=== PATIENT | female | born 1930 | race Caucasian/White ===

== ENCOUNTER 2016-10-23 16:24 | Inpatient (IN) ==
[2016-10-23] MEDS ORDERED: KETOROLAC 30 MG/ML INJECTION IVP ONE (16:57)
[2016-10-23] MEDS ORDERED: ONDANSETRON 4 MG/2 ML INJECTION IVP ONE (16:57)
--- NOTE | 2016-10-23 17:02 | Emergency Department Report ---
Abdominal Pain HPI - General Chief Complaint: Abdominal Pain <Sony Sierra 10/23/16 20:53> Stated Complaint: Abdominal pain <Sony Sierra 10/23/16 20:53> Time Seen by Provider: 10/23/16 16:52 <Sony Sierra 10/23/16 20:53> Source: patient, family <10/23/16 17:05> Mode of arrival: ambulatory <10/23/16 17:05> Limitations: no limitations <10/23/16 17:05> - History of Present Illness HPI narrative: 86yo woman presents to the ER for evaluation of abdominal pain. Pt has had abd pain, distension, and bloating for the last 4 days. Nothing helps her sx; movement, palpation, and food make it worse. Pt has not gotten any relief from maalox or tylenol. Has never had sx like this before. <10/23/16 17:05> MD complaint: abdominal pain <10/23/16 17:05> Onset (ago): day(s) (4) <10/23/16 17:05> Consistency: constant <10/23/16 17:05> Location: diffuse <10/23/16 17:05> Severity: severe <10/23/16 17:05> Severity scale (1-10): 8 <10/23/16 17:05> Quality: sharp <10/23/16 17:05> Radiation: none <10/23/16 17:05> Migration to: no migration <10/23/16 17:05> Relieving factors: nothing <10/23/16 17:05> Exacerbating factors: eating, movement <10/23/16 17:05> Associated symptoms: nausea <10/23/16 17:05> - Related Data Home Medications Medication Instructions Recorded Confirmed Simvastatin 10 mg PO HS #0 12/20/09 10/23/16 Nitroglycerin 0.4 mg SL Q5MIN3 PRN #0 12/30/09 10/23/16 Acetaminophen 650 mg PO DAILY PRN #0 02/26/15 10/23/16 Acetaminophen [Acetaminophen Extra 1,000 mg PO TID 10/23/16 10/23/16 Strength] Amlodipine Besylate [Norvasc] 5 mg PO DAILY 10/23/16 10/23/16 Carbidopa/Levodopa 25/100 mg 1 tab PO Q3H 10/23/16 10/23/16 [Sinemet] Cholecalciferol (Vitamin D3) 1,000 unit PO DAILY 10/23/16 10/23/16 [Vitamin D3] Cyanocobalamin (B-12) [Vit. B-12] 500 mcg PO DAILY 10/23/16 10/23/16 Folic Acid [Folate] 1 mg PO DAILY 10/23/16 10/23/16 Guaifenesin/Dm [Mucinex Dm] 1 tab PO Q12H PRN 10/23/16 10/23/16 Labetalol [Normodyne] 50 mg PO BID 10/23/16 10/23/16 Mag Hydrox/Aluminum Hyd/Simeth 30 ml PO DAILY PRN 10/23/16 10/23/16 [Alum-Mag Hydroxide-Simeth Liq] Magnesium Oxide [Magnesium] 400 mg PO DAILY 10/23/16 10/23/16 Potassium Chloride [Klor-Con M20] 20 meq PO DAILY 10/23/16 10/23/16 Sertraline [Zoloft] 100 mg PO DAILY 10/23/16 10/23/16 Trolamine Salicylate 10% Cream 1 applic TOP TID PRN 10/23/16 10/23/16 [Aspercreme] Previous Rx's Medication Instructions Recorded Ciprofloxacin HCl [Cipro] 500 mg PO BID #14 tab 10/23/16 <Sony Sierra 10/23/16 20:53> Allergies Allergy/AdvReac Type Severity Reaction Status Date / Time tramadol Allergy Unknown Verified 10/23/16 16:35 codeine AdvReac Unknown NAUSEA Verified 10/23/16 16:35 hydrocodone bit AdvReac Unknown NAUSEA Uncoded 10/23/16 16:35 <Sony Sierra - 10/23/16 20:53> Review of Systems All systems: reviewed and negative except as stated <10/23/16 17 :05> Gastrointestinal: Reports: as per HPI, abdominal pain, nausea <10/23/16 17:05> PFS Patient Stated Medical History Cataracts Yes Cardiac Arrhythmia Yes: afib Hypertension Yes Gastroesophageal Reflux Yes Disease Osteoarthritis Yes Post Menopausal Yes Clinic Medical History (Last Reviewed 10/19/16 @ 15:00 by ZACK Coello) Primary osteoarthritis of left knee (Chronic Medical) Atrial fibrillation (Acute Medical) CHF (congestive heart failure) (Acute Medical) Depression (Acute Medical) Dysuria (Acute Medical) HTN (hypertension) (Acute Medical) Hyperlipidemia (Acute Medical) Nausea & vomiting (Acute Medical) Osteoporosis (Acute Medical) Parkinsons (Acute Medical) Tremors of nervous system (Acute Medical) <Sony Sierra 10/23/16 20:53> Patient Stated Medical History Cataracts Yes Post Menopausal Yes Clinic Medical History (Last Reviewed 10/19/16 @ 15:00 by ZACK Coello) Primary osteoarthritis of left knee (Chronic Medical) Atrial fibrillation (Acute Medical) CHF (congestive heart failure) (Acute Medical) Depression (Acute Medical) Dysuria (Acute Medical) HTN (hypertension) (Acute Medical) Hyperlipidemia (Acute Medical) Nausea & vomiting (Acute Medical) Osteoporosis (Acute Medical) Parkinsons (Acute Medical) Tremors of nervous system (Acute Medical) <10/23/16 17:05> Surgical History: Cholecystectomy: 1981. CTS, bunion removal. Cataract removal : 2006. Rt TKA 2000. Right TKA. Back surgery 2012 <10/23/16 17:05> Family History: Family History (Last Reviewed 10/19/16 @ 15:00 by ZACK Coello) Mother Coronary artery disease Father Coronary artery disease <Sony Sierra 10/23/16 20:53> Family History (Last Reviewed 10/19/16 @ 15:00 by ZACK Coello) Mother Coronary artery disease Father Coronary artery disease <10/23/16 17:05> - Social History Smoking status: Never smoker <10/23/16 17:05> Physical Exam - Limitations Limitations: no limitations <10/23/16 17:05> - General General appearance: alert, in no apparent distress <10/23/16 17: 05> - Normal Exams: Head:: Normocephalic without trauma <10/23/16 17:05> Eyes:: Pupils are PERRLA w/ EOMI, No scleral icterus, irritation, or foreign bodies noted <10/23/16 17:05> ENMT:: No facial trauma, nasal exudates, pharyngeal erythema, or exudates are noted <10/23/16 17:05> Neck:: Full range of motion, without adenopathy <10/23/16 17:05> Chest/Respirations:: Clear all [place], with good airflow, and symmetry bilaterally <10/23/16 17:05> Cardiovascular:: Regular rate and rhythm, without murmur or gallop, Pulses 2+ all extremities, capillary refill, <2 seconds all extremities <10/23/16 17:05> Lymphatic:: No lymphadenopathy <10/23/16 17:05> Musculoskeletal:: No tenderness, or deformity noted <10/23/16 17 :05> Integumentary:: No rashes, hives, or bruising noted <10/23/16 17 :05> Neurological:: Patient is alert, and oriented <10/23/16 17:05> Psychiatric:: Patient exhibits, appropriate attention <10/23/16 17:05> - Abdominal Exam Abdominal exam: Present: soft, distention, tenderness, normal bowel sounds. Absent: guarding, rebound, rigidity, psoas sign, obturator sign, heel tap sign, Reed's sign, Rovsing's sign, tenderness at [place], hernia <June,10/23/16 17:05> Abdominal tenderness: Present: diffuse <10/23/16 17:05> Course Vital Signs Temperature 98.4 F 10/23/16 16:35 Pulse Rate 77 10/23/16 16:35 Respiratory Rate 22 10/23/16 16:35 Blood Pressure 136/88 10/23/16 16:35 Pulse Oximetry 97 10/23/16 16:35 Temperature 98.4 F 10/23/16 16:35 Pulse Rate 67 10/23/16 19:58 Respiratory Rate 19 10/23/16 19:58 Blood Pressure 172/81 H 10/23/16 19:58 Pulse Oximetry 97 10/23/16 19:58 <Sony Sierra - 10/23/16 20:53> Vital Signs Temperature 98.4 F 10/23/16 16:35 Pulse Rate 77 10/23/16 16:35 Respiratory Rate 22 10/23/16 16:35 Blood Pressure 136/88 10/23/16 16:35 Pulse Oximetry 97 10/23/16 16:35 Temperature 98.4 F 10/23/16 16:35 Pulse Rate 77 10/23/16 16:35 Respiratory Rate 22 10/23/16 16:35 Blood Pressure 136/88 10/23/16 16:35 Pulse Oximetry 97 10/23/16 16:35 <JuneGuzman 10/23/16 17:05> Abdominal Pain - MDM Narrative Medical decision making narrative: Labs/imaging reviewed in detail with the patient and family and the emergency department and questions are answered. Patient is given analgesic and antiemetic medications intravenously with improvement of symptoms in the emergency Department. Patient is found to have a microperforation associated with acute diverticulitis. General surgery is counseled on from the emergency department and comes to the emergency department and evaluates the patient in the form of Dr. Trevizo. Patient is discussed with Dr. Davidson and admitted to the service of Dr. Vazquez. Patient is given Invanz 1 g intravenously. She is a DO NOT RESUSCITATE. Patient and family are in agreement with the current plan of management. Patient is admitted to the hospital in improved condition. No further orders from accepting or consulting physicians were in agreement with the current plan of management. Patient is made nothing by mouth in the emergency department. <Sony Sierra 10/23/16 20:53> - Differential Diagnosis Differential diagnosis: Likely: abdominal pain, constipation, diverticulitis, gastroenteritis, pancreatitis, small bowel obstruction <June,Guzman 17:05> - Medical Records Attestation: I reviewed the patient's medical records. <JuneGuzman - 17:05> - Lab Data Attestation: I reviewed the patient's lab results. <JuneGuzman - 10/23/16 17: 05> Result diagrams: 10/23/16 04:07 10/23/16 04:07 <Sony Sierra C - 10/23/16 20:53> Lab Results 10/23/16 10/23/16 10/23/16 Range/Units 04:07 04:07 18:42 WBC 10.6 (4.5-11.0) T/MM3 RBC 3.79 L (4.00-5.20) M/MM3 Hgb 12.4 (12-16) GM/DL Hct 37.5 (36-46) % MCV 98.9 (80-100) UM3 MCH 32.7 (26-34) UUG MCHC 33.1 (31-37) GM/DL RDW Std Deviation 46.4 (36.9-50.2) FL Plt Count 166 (130-400) T/MM3 MPV 11.2 (9.4-12.4) UM3 Immature Gran % (Auto) Not performed Neut % (Auto) Not performed Lymph % (Auto) Not performed [place] % (Auto) Not performed Eos % (Auto) Not performed Baso % (Auto) Not performed Neut # Not performed Lymph # Not performed [place] # Not performed Eos # Not performed Baso # Not performed Abs Immat Gran (auto) Not performed Neutrophils % (Manual) 84.0 H (33-66) % Band Neutrophils % 1.0 (0-6) % Lymphocytes % (Manual) 11.0 L (23-45) % Monocytes % (Manual) 2.0 (0-9.0) % Metamyelocytes % 1.0 H (0-0) % Myelocytes % 1.0 H (0-0) % Neutrophils # (Manual) 8.9 H (1.8-7.7) T/MM3 Band Neutrophils # 0.1 T/MM3 Lymphocytes # (Manual) 1.2 (1-4.8) T/MM3 Monocytes # (Manual) 0.2 (0-0.8) T/MM3 Metamyelocytes # 0.1 T/MM3 Myelocytes # 0.1 T/MM3 RBC Morph Comment Normal Turbidity < 20 (0-20) Sodium 137 (134-144) MEQ/L Potassium 4.4 (3.6-5) MEQ/L Chloride 103 (98-107) MEQ/L Carbon Dioxide 25 (22-30) MEQ/L Anion Gap 9 (5-15) MEQ/L BUN 28.0 H (7-17) MG/DL Creatinine 0.7 (0.7-1.2) MG/DL GFR Calculation 79 BUN/Creatinine Ratio 40 H (6-26) RATIO Glucose 143 H (65-110) MG/DL Calculated Osmolality 272 (261-280) MOSM/KG Calcium 9.4 (8.4-10.2) MG/DL Total Bilirubin 1.00 (0.20-1.30) MG/DL Icterus Index < 2 (0-7) AST 16 (14-36) U/L ALT 19 (9-52) U/L Alkaline Phosphatase 76 (38-126) U/L Total Protein 6.9 (6.3-8.2) G/DL Albumin 3.9 (3.5-5.0) G/DL Globulin 3.0 (2.4-3.6) G/DL Albumin/Globulin Ratio 1.3 (1.1-2.2) RATIO Lipase 13 L (23-300) U/L Plasma Lactate 1.0 (0.6-2.2) MMOL/L Specimen Hemolysis < 15 (0-25) Ur Collection Type Urine, clean catch Urine Color Yellow (YELLOW) Urine Clarity Cloudy Urine pH 6.0 (5.0-8.0) Ur Specific [place] 1.020 (1.015-1.025) Urine Protein 2+ A (NEGATIVE) Urine Glucose (UA) Negative (NEGATIVE) Urine Ketones Trace A (NEGATIVE) Urine Occult Blood Negative (NEGATIVE) Urine Nitrate Positive A (NEGATIVE) Urine Bilirubin Negative (NEGATIVE) Urine Urobilinogen 0.2 (NORMAL) EU/DL Ur Leukocyte Esterase Trace A (NEGATIVE) Urine RBC 0-1 (0-3) /HPF Urine WBC 10-20 H (0-5) /HPF Urine Bacteria 3+ H (NEGATIVE) Ur Culture Indicated? Cult reflexed &setup <Sony Sierra - 10/23/16 20:36> - Radiology Data Attestation: I reviewed the patient's radiology results. <JuneGuzman M - 17:05> CT ABD/PELVIS: Acute diverticultitis with microperforation. Multiple air fluid levels without obstruction. Pancreatic tail hypoattenuating lesion. <Sony Sierra 10/23/16 20:36> Disposition Clinical Impression: Acute diverticulitis, Colon perforation <Sony Sierra 10/23/16 20:36> Disposition: 02 To [facility] Acute Care <Sony Sierra 10/23/16 20:36> Condition: Improved <Sony Sierra 10/23/16 20:53> Instructions: Kidney Infection (ED) <Sony Sierra 10/23/16 20:53> Prescriptions: New Ciprofloxacin HCl [Cipro] 500 mg PO BID #14 tab No Action Acetaminophen 650 mg PO DAILY PRN #0 PRN Reason: PAIN Acetaminophen [Acetaminophen Extra Strength] 1,000 mg PO TID Carbidopa/Levodopa 25/100 mg [Sinemet] 1 tab PO Q3H Guaifenesin/Dm [Mucinex Dm] 1 tab PO Q12H PRN PRN Reason: Nasal Congestion Magnesium Oxide [Magnesium] 400 mg PO DAILY Mag Hydrox/Aluminum Hyd/Simeth [Alum-Mag Hydroxide-Simeth Liq] 30 ml PO DAILY PRN PRN Reason: Reflux Labetalol [Normodyne] 50 mg PO BID Cyanocobalamin (B-12) [Vit. B-12] 500 mcg PO DAILY Amlodipine Besylate [Norvasc] 5 mg PO DAILY Trolamine Salicylate 10% Cream [Aspercreme] 1 applic TOP TID PRN PRN Reason: Pain Simvastatin 10 mg PO HS #0 Nitroglycerin 0.4 mg SL Q5MIN3 PRN #0 PRN Reason: chest pain Sertraline [Zoloft] 100 mg PO DAILY Cholecalciferol (Vitamin D3) [Vitamin D3] 1,000 unit PO DAILY Potassium Chloride [Klor-Con M20] 20 meq PO DAILY Folic Acid [Folate] 1 mg PO DAILY <Sony Sierra - 10/23/16 20:53> Referrals: Tila Bazzi DO [Family Provider] - <Sony Sierra 10/23/16 20:53> Time of Disposition: 20:00 (admit. Dr. Vazquez) <Sony Sierra - 10/23/16 20:36 > - Seen By: physician <Sony Sierra 10/23/16 20:36>
[2016-10-23] MEDS: SALINE FLUSH 10ml SYRINGE IVF PRN (17:07)
--- OUTSIDE RECORDS SUMMARY | 2016-10-23 17:15 | External Medical Summary | Referral Summary ---
:1930 Author Organization [facility] Address [address] [place] [address] Encounter VC Date(s): 03/06/15 - 03/13/15 [facility] [address] [place] [address] [phone] Discharge Diagnosis: Anemia, likely chronic Discharge Diagnosis: Accelerated hypertension Discharge Diagnosis: Elevated troponin level Discharge Diagnosis: Cervicalgia Discharge Diagnosis: Fall from standing Discharge Diagnosis: Parkinsons disease Discharge Diagnosis: Multiple recent falls Discharge Diagnosis: Hypokalemia Discharge Diagnosis: Traumatic ecchymosis of multiple sites Discharge Diagnosis: Type II NM Discharge Diagnosis: Hypomagnesemia Discharge Diagnosis: Diarrhea Discharge Diagnosis: Closed compression/endplate fractures of T7 vertebra Discharge Diagnosis: Dysphagia Discharge Diagnosis: Traumatic left subdural hematoma with loss of consciousness of unknown duration Discharge Disposition: -Group Home Facility Attending Physician: Dave Reed MD Admitting Physician: Dave Reed MD Vital Signs Most recent to oldest [Reference Range]: 1 Temperature Axillary [35.2-36.7 degC] 36.7 degC (03/11/15 8:40 PM) Temperature Oral [35.8-37.3 degC] 36.4 degC (03/13/15 9:29 AM) Temperature Temporal Artery [36.3-37.8 degC] 36.6 degC (03/08/15 9:00 AM) Peripheral Pulse Rate [60-100 bpm] 79 bpm (03/13/15 9:29 AM) Heart Rate Monitored [60-100 bpm] 83 bpm (03/11/15 3:30 PM) Respiratory Rate [14-20 br/min] 16 br/min (03/13/15 9:29 AM) Blood Pressure [90-140/60-90 mmHg] 195/100 mmHg *HI* (03/13/15 9:29 AM) Mean Arterial Pressure, Cuff 109 mmHg (03/09/15 2:20 AM) SpO2 96 % (03/13/15 9:29 AM) Problem List Condition Effective Dates Status Health Status Informant Acute pain(Confirmed) Active At risk for injury(Confirmed)1 Active At risk of pressure sore(Confirmed) Active Knowledge deficit(Confirmed)2 Active Urinary incontinence(Confirmed)3 Active 1Problem added automatically by system based on initiation of Risk for Injury Plan of [id number] added automatically by system based on initiation of Knowledge Deficit Plan of [id number] added automatically by system based on initiation of Urinary Incontinence Plan of Care Allergies, Adverse Reactions, Alerts Substance Reaction Severity Status codeine Nausea Active Lortab Nausea Active traMADol Nausea Active Medications acetaminophen 650 mg, Oral, q4hr, as needed for pain, 1-2 tabs, 0 Refill(s) Start Date: 03/06/15 Status: Orderedcarbidopa-levodopa 25 mg-100 mg oral tablet 1 tabs, Oral, 5x/Day, 0 Refill(s) Start Date: 03/06/15 Status: OrderedColace 100 mg oral capsule 100 mg 1 caps, Oral, BID, 0 Refill(s) Start Date: 03/13/15 Status: OrderedDulcolax Laxative 10 mg, Oral, Daily, as needed for constipation, 0 Refill(s) Start Date: 03/06/15 Status: Orderedfolic acid 1 mg oral tablet 1 mg 1 tabs, Oral, Daily, 0 Refill(s) Start Date: 03/06/15 Status: Orderedlabetalol 100 mg oral tablet 100 mg 1 tabs, Oral, BID, 0 Refill(s) Start Date: 03/12/15 Status: Orderedmagnesium oxide 400 mg (241.3 mg elemental magnesium) oral tablet 400 mg 1 tabs, Oral, BID, 0 Refill(s) Start Date: 03/13/15 Status: OrderedMilk of Magnesia 2,400 mg 30 mL, Oral, Daily, 0 Refill(s) Start Date: 03/13/15 Status: OrderedMiraLax 17 g 1 packets, Oral, Daily, 0 Refill(s) Start Date: 03/13/15 Status: OrderedNitrostat 0.4 mg sublingual tablet 0.4 mg 1 tabs, SubLingual, q5min, as needed for chest pain, # 100 tabs, 0 Refill (s) Start Date: 03/06/15 Status: Orderedomeprazole 20 mg, Oral, Daily, 0 Refill(s) Start Date: 03/06/15 Status: Orderedoxybutynin 5 mg oral tablet 5 mg 1 tabs, Oral, QID, 0 Refill(s) Start Date: 03/06/15 Status: Orderedpotassium chloride 20 mEq oral tablet, extended release 40 mEq 2 tabs, Oral, TID, 0 Refill(s) Start Date: 03/13/15 Status: Orderedsertraline 100 mg oral tablet 150 mg 1.5 tabs, Oral, Daily, 0 Refill(s) Start Date: 03/06/15 Status: Orderedsimvastatin 10 mg oral tablet 10 mg 1 tabs, Oral, Bedtime (once a day), 0 Refill(s) Start Date: 03/06/15 Status: OrderedVitamin B12 500 mcg, Oral, Daily, 0 Refill(s) Start Date: 03/06/15 Status: OrderedZofran 4 mg oral tablet 8 mg 2 tabs, Oral, q8hr, as needed for nausea/vomiting, 0 Refill(s) Start Date: 03/06/15 Status: Ordered Results Hematology Most recent to oldest [Reference Range]: 1 WBC [4.8-10.8 10*3/uL] 5.2 10*3/uL (03/13/15 5:14 AM) RBC [4.00-5.20] 3.30 *LOW* (03/13/15 5:14 AM) Hgb [12.0-16.0 gm/dL] 10.4 gm/dL *LOW* (03/13/15 5:14 AM) Hct [37.0-47.0 %] 31.2 % *LOW* (03/13/15 5:14 AM) MCV [82.0-99.0 fL] 94.5 fL (03/13/15 5:14 AM) MCH [27.0-32.0 pg] 31.5 pg (03/13/15 5:14 AM) MCHC [32.0-36.0 gm/dL] 33.3 gm/dL (03/13/15 5:14 AM) RDW [11.5-14.5 %] 12.6 % (03/13/15 5:14 AM) Platelet [150-400 10*3/uL] 194 10*3/uL (03/13/15 5:14 AM) MPV [9.4-12.4 fL] 11.3 fL (03/13/15 5:14 AM) Coagulation Most recent to oldest [Reference Range]: 1 INR [0.9-1.2] 1.0 (03/06/15 8:53 AM) Chemistry Most recent to oldest [Reference Range]: 1 Sodium Lvl [136-144 mEq/L] 136 mEq/L (03/13/15 5:14 AM) Potassium Lvl [3.6-5.1 mEq/L] 2.6 mEq/L *LOW* (03/13/15 5:14 AM) Chloride [99-109 mEq/L] 99 mEq/L (03/13/15 5:14 AM) CO2 [22-32 mEq/L] 29 mEq/L (03/13/15 5:14 AM) AGAP [3-20] 8 (03/13/15 5:14 AM) BUN [4-20 mg/dL] 9 mg/dL (03/13/15 5:14 AM) Glucose Lvl [70-100 mg/dL] 113 mg/dL *HI* (03/13/15 5:14 AM) Creatinine Lvl [0.44-1.03 mg/dL] 0.50 mg/dL (03/13/15 5:14 AM) eGFR [>60] >60 1 (03/13/15 5:14 AM) Calcium Lvl [8.6-10.0 mg/dL] 8.2 mg/dL *LOW* (03/13/15 5:14 AM) Albumin Lvl [3.5-4.8 gm/dL] 2.2 gm/dL *LOW* (03/13/15 5:14 AM) Magnesium Lvl [1.8-2.5 mg/dL] 1.3 mg/dL *LOW* (03/13/15 5:14 AM) Phosphorus [2.4-4.7 mg/dL] 2.8 mg/dL 2 (03/13/15 5:14 AM) Troponin [<0.06 ng/mL] 0.76 ng/mL 3 *HHI* (03/07/15 12:41 AM) Lactic Acid Lvl [0.5-2.2 mEq/L] 1.5 mEq/L (03/06/15 9:00 AM) Blood Glucose, Capillary [74-106 mg/dL] 91 mg/dL (03/06/15 9:35 AM) Blood Glucose, Capillary [70-100 mg/dL] 91 mg/dL (03/06/15 9:35 AM) Chol [0-200 mg/dL] 133 mg/dL (03/06/15 9:00 AM) Trig [0-150 mg/dL] 75 mg/dL (03/06/15 9:00 AM) HDL [>40 mg/dL] 71 mg/dL (03/06/15 9:00 AM) LDL [0-100 mg/dL] 47 mg/dL (03/06/15 9:00 AM) VLDL Cholesterol [0-30 mg/dL] 15 mg/dL (03/06/15 9:00 AM) Cardiac Risk [0.0-5.0] 1.9 (03/06/15 9:00 AM) 1Result Comment: Multiply eGFR results by 1.21 for race.2Result Comment: High dosages of liposomal Amphotericin B (AmBisome) therapy or other drug preparations that use a liposomal envelope to facilitate drug delivery may cause falsely elevated results for phosphorus.3Result Comment: Critical value called, and read-back verified. Called to Jessika Austin RN @ 03/07/2015 01:29 Immunizations No data available for this section Procedures No data available for this section Social History No data available for this section Assessment and Plan No data available for this section
--- OUTSIDE RECORDS SUMMARY | 2016-10-23 17:15 | External Medical Summary | Continuity of Care Document ---
:1930 Author Organization [facility] Support Name Relationship Address Phone MED CONTEH DO Unavailable [address] [place] [address] JENARO PRECIADO MD Unavailable [address] [address] TARIQ MARTÍNEZ Unavailable [address] [place] [address] Insurance Providers Payer Name Policy Number Subscriber Name Relationship Medicareadvantra Ppo [id number] Chon Nayak 18 Self Advance Directives Directive Response Recorded Date/Time Advanced Directives Type None 05/28/14 6:17pm Ordered Resuscitation Status Full Code, unverified 05/28/14 6:09pm Resuscitation Documents on File No 05/28/14 6:37pm Chief Complaint and Reason for Visit Chief Complaint RT UPPER EXTREMITY/LOWEREXTREMITY WEAKNESS Reason for Visit Weakness of right upper extremity CVA (cerebrovascular accident) Problems Medical Problems Problem Onset Date Status Fall Unknown Active Minor Head Injury Unknown Active Scalp laceration Unknown Active Back injury Unknown Active Laceration of back Unknown Active Fall Unknown Active Weakness of right upper extremity Unknown Active CVA (cerebrovascular accident) 05/31/2014 Active Medications Medication Dose Route Sig Days/Qty Instructions Order Discontinued Status Date Date Hydrochlorothia 1 Tab PO DAILY 12/20/09 Discontinu zide ed Amlodipine 1 Tab PO DAILY 07/17/ 02/09/09 Discontinu Bes/Olmesartan 09 ed Med Carbidopa/Levod 1 Tab PO THREE 07/05/ 12/20/09 Discontinu opa TIMES A 10 ed DAY [Vitamin B 12] 1 Tab PO DAILY 07/05/ 12/20/09 Discontinu 10 ed Aspirin 81 Mg PO DAILY 07/04/09 Discontinu 09 ed Metoprolol 50 Mg PO DAILY 12/20/ 12/30/09 Discontinu Succinate ed Clopidogrel 75 Mg PO DAILY 07/04/09 Discontinu Bisulfate 09 ed Simvastatin 1 Tab PO DAILY 12/20/ 10 Asa/Calcium 500 Mg PO DAILY 07/05/ 12/20/09 Discontinu Carb/Mag/Al 10 ed Hydrox Carbidopa/Levod 1 PO 04/28/12 Discontinu opa Udtab 10 ed Propoxyphene 65 Mg PO 04/28/12 Discontinu Hcl NEEDED 10 ed Ferrous Sulfate 1 Tab PO DAILY 12/20/ 12/30/09 Discontinu 10 ed Acetaminophen 500 Mg PO 12/30/ Active NEEDED 10 Aspirin 81 Mg PO DAILY 04/28/12 Discontinu 10 ed Famotidine 20 Mg PO 03/21/13 Discontinu NEEDED 10 ed Iron 150 Mg PO DAILY 03/21/13 Discontinu Polysaccharides 10 ed Complex Nitroglycerin 0.4 Mg SL NEEDED 10 Docusate Sodium 100 Mg PO DAILY 04/28/12 Discontinu 13 ed Polyethylene 17 Gm PO DAILY 04/28/12 Discontinu Glycol 3350 13 ed Isosorbide 30 Mg PO DAILY 04/28/12 Discontinu Mononitrate 13 ed Simvastatin 10 Mg PO BEDTIME 04/28/12 Discontinu 13 ed Metoprolol 25 Mg PO DAILY 04/28/12 Discontinu Succinate 13 ed Gabapentin 1 Tab PO THREE 02/25/ TIMES A 13 DAY Oxycodone 1 Tab PO Q4H PRN 03/21/13 Discontinu Hcl/Acetaminoph 13 ed en Bisacodyl 10 Mg PO 03/21/13 Discontinu NEEDED 13 ed Acetaminophen 650 Mg PO 04/28/12 Discontinu 13 ed Magnesium Oxide 400 Mg PO TWICE A 04/28/12 Discontinu DAY 13 ed Nitroglycerin 0.4 Mg SL 04/28/12 Discontinu NEEDED 13 ed Aspirin 81 Mg PO DAILY 05/31/14 Discontinu 14 ed Metoprolol 1 Tab PO DAILY 05/31/14 Discontinu Succinate 15 ed Sertraline HCl 1.5 PO DAILY 05/28/ Tab 15 Midodrine HCl 1 Tab PO TWICE A 05/28/ 05/31/14 Discontinu DAY 15 ed Ibuprofen 2 Tab PO Q4H PRN 05/28/ 05/31/14 Discontinu PAIN 15 ed Cyanocobalamin 1 Tab PO DAILY (Vitamin B-12) 15 Folic Acid 1 Tab PO DAILY 800 mcg 15 Multivitamin 1 Tab PO DAILY Active 15 Carbidopa/Levod 1 Tab PO 5 TIMES 05/28/ Active opa DAILY 15 Oxybutynin 5 Mg PO TWICE A 05/28/ Active Chloride DAY 15 Metoprolol 50 Mg PO ONE TO 60 Qty 05/31/ Active Succinate TWO 15 TIMES A DAY Social History Social History Problem Response Recorded Date/Time Hx Substance Use No 05/28/2014 5:15pm Hx Alcohol Use No 05/28/2014 5:15pm Has the pt used tobacco in the last 12 months No 05/28/2014 6:37pm Tobacco Usage none 05/28/2014 5:23pm Query Response Start Date Stop Date Smoking Status Never smoker Hospital Discharge Instructions Instructions: Care Instructions: Reason for Hospitalization: RIGHT UPPER AND LOWER EXTREMITY WEAKNESS I was in the hospital because (patient own words): States,"I thought I was having a stroke." Follow Up Appointments: Appt with Dr. Conteh in [address] CONTEH ON 06/06/2014 AT 11:00 AM FOR FOLLOW UP VISIT. [phone], CLINIC NUMBER. Patient Instructions: Take BPs 2 x a day and bring into appt. Condition at time of discharge: Good Patient Instructions: OUTPATIENT INFUSION FOR WOUND PACKING 05/13/14 RETURN TO CARE IMMEDIATELY IF GROIN PAIN WORSENS AND/OR IF FEVER, CHILLS OCCUR. CONTINUE CURRENT DOSE AND SCHEDULE OF INSULIN PUMP CHECK BLOOD SUGARS BEFORE MEALS AND AT BEDTIME. CALL DR. BRAVO FOR SUGARS GREATER THAN 300. Condition at time of discharge: Good Condition at time of discharge: Good Plan of Care Discharge Date 05/31/14 1:10pm Disposition 01 DISCHARGED HOME, SELF-CARE Instructions/Education Provided DI for Stroke-Ischemic Prescriptions See Medications Section Functional Status Query Response Date Recorded Physical Hygiene Self May 31, 2014 9:57am Disabilities Visual May 31, 2014 9:57am None Devices Used Glasses May 31, 2014 9:57am Walker Dressing Self May 31, 2014 9:57am Ambulation Self May 31, 2014 9:57am Diet Self May 31, 2014 9:57am Mental Status Alert May 31, 2014 9:57am Oriented Disabilities Visual May 31, 2014 9:57am None Devices Used Glasses May 31, 2014 9:57am Walker Physical Hygiene Self May 31, 2014 9:57am Dressing Self May 31, 2014 9:57am Ambulation Self May 31, 2014 9:57am Diet Self May 31, 2014 9:57am Allergies, Adverse Reactions, Alerts Allergen Type Severity Reaction Status Last Updated hydrocodone bit Adverse Reaction Unknown NAUSEA Active 05/28/14 Codeine Adverse Reaction Unknown NAUSEA Active 05/28/14 Tramadol Allergy Unknown Active 05/28/14 Immunizations Name Given Type Hx Influenza Vaccination Y nov 2013 Historical Hx Pneumococcal Vaccination Y fall 2010 Historical Hx Tetanus, Diptheria, Pertussis Y 04/05/14 Historical Hx Influenza Vaccination Y nov 2013 Historical Hx Tetanus, Diptheria, Pertussis Y 04/05/14 Historical Vital Signs Acute Vital Signs Vital Response Date/Time Temperature (Fahrenheit) 97.4 deg F (96.8 - 99.1) Temperature (Calculated Celsius) 36.76177 degrees C (36.0 - 37.3) Pulse Rate (adult) 58 bpm (60 - 100) Respiratory Rate 18 breaths/min (10 - 20) O2 Sat by Pulse Oximetry 96 % (90 - 100) Oxygen Delivery Method Room Air Blood Pressure 202/106 mm Hg Blood Pressure Source Automatic Cuff Blood Pressure 206/99 mm Hg Blood Pressure 172/77 mm Hg Blood Pressure 172/77 mm Hg Height 5 ft 5 in Weight 150 lb Body Mass Index 25.0 kg/m^2 Results Test Source Date Result Interp. Ref. Comments Range Absolute February 28, 0.0742 T/MM3 N 0.0300-0 Reticulocyte Count 2012 4:38am .0900 Activated Partial May 28, 28.3 SEC N 24-36 Thromboplast Time 2014 5:15pm Alanine May 29, 19 U/L N 9-52 Aminotransferase 2014 4:43am (ALT/SGPT) Albumin May 29, 3.4 G/DL L 3.5-5.0 2014 4:43am Albumin/Globulin May 29, 1.3 RATIO N 1.1-2.2 Ratio 2014 4:43am Alkaline Phosphatase May 29, 79 U/L N 38-126 2014 4:43am Anion Gap May 31, 9 MEQ/L N 5-15 2014 4:41am Aspartate Amino May 29, 14 U/L N 14-36 Transf (AST/SGOT) 2014 4:43am B-Type Natriuretic July 17, 2008 48 PG/ML N 15-100 Peptide 6:40pm BUN/Creatinine Ratio May 31, 32 RATIO H 6-2014 4:41am Band Neutrophils # May 29, 0.2 T/MM3 - 2014 4:43am Band Neutrophils % May 29, 4.0 % N 0-6 2014 4:43am Basophils # (Auto) May 31, 0.0 T/MM3 N 0-0.2 2014 4:41am Basophils # (Manual) January 09, 0.0 T/MM3 N 0-0.2 2009 6:05am Basophils % (Manual) January 09, 0.0 % N 0-2 2009 6:05am Basophils (%) (Auto) May 31, 0.8 % N 0-2 2014 4:41am Blood Smear February 28, Sent for - SPECIMEN NOT Pathologist Review 2012 10:00am review RESULTED FROM DAY BEFORE, CHECKED WITH THERESA ANDKVNGIMEN WAS SENT OUT ON 02-29-12. CAU Blood Urea Nitrogen May 31, 32.0 MG/DL H 7-2014 4:41am Calcium Level May 31, 8.9 MG/DL N 8.4-10.2 2014 4:41am Calculated May 31, 282 MOSM/KG H 261-280 Osmolality 2014 4:41am Carbon Dioxide Level May 31, 30 MEQ/L N 22-30 2014 4:41am Chemistry Specimen May 31, < 15 0-25 0-25: No Hemolysis.26-70: Slight Hemolysis - can falsely elevate K and Urine Hemolysis 2015 4:41am Protein. 71-285: Moderate Hemolysis - can falsely elevate K, Troponin I, CA 19-9, PTH, CSF GLucose, and Urine Protein, and can falsely decrease Phenytoin. 286-999: Gross Hemolysis - can falsely elevate K, Troponin I, CA 19-9, PTH, CSF Glucose, and Urine Protine, and can falsely decrease Phenytoin. Recommend specimen recollection. Chloride Level May 31, 104 MEQ/L N 98-107 2014 4:41am Cholesterol Level July 18, 2008 213 MG/DL H 132-199 6:10am Cholesterol/HDL July 18, 2008 3.0 RATIO N 0-4.0 Ratio 6:10am Creatinine May 31, 1.0 MG/DL N 0.7-1.2 2014 4:41am Differential Total January 14, 100 % - Cells Counted 2009 5:40am EKG July 18, 2008 Complete - COMMENT THIS 10:20am AM Eosinophils # (Auto) May 31, 0.2 T/MM3 N 0-0.5 2014 4:41am Eosinophils # May 29, 0.1 T/MM3 N 0-0.5 (Manual) 2014 4:43am Eosinophils % May 29, 2.0 % N 0-4 (Manual) 2014 4:43am Eosinophils (%) May 31, 2.9 % N 0-4 (Auto) 2014 4:41am Ferritin February 28, 131 NG/ML N 11-264 2012 5:05am Folate February 28, 18.9 NG/ML N 2.76-20 NORMAL ADULT 2012 5:05am RANGE: 2.76->20 ng/mL Free Thyroxine May 29, 1.05 NG/DL N 0.78-2.1 2014 4:43am 9 Globulin May 29, 2.7 G/DL N 2.4-3.6 2014 4:43am Glomerular May 31, 53 - Filtration Rate Calc 2014 4:41am Glucometer May 31, 209 mg/dL H 65-110 2014 8:50am Glucose Level May 31, 105 MG/DL N 65-110 2014 4:41am HDL Cholesterol July 18, 2008 71 MG/DL H 40-60 Direct 6:10am Hematocrit May 31, 33.5 % L 36-46 2014 4:41am Hemoglobin May 31, 10.7 GM/DL L 12-16 2014 4:41am Icterus Index May 31, < 2 0-7 2014 4:41am Immature Granulocyte May 31, 0.01 T/MM3 N 0.00-0.0 # (Auto) 2014 4:41am 3 Immature Granulocyte May 31, 0.2 % N 0.0-0.5 % (Auto) 2014 4:41am Immature February 28, 11.2 % N 3.3-14.5 Reticulocyte 2012 4:38am Fraction Ionized Calcium January 14, 1.18 MMOL/L N 1.12-1.3 (Measured) 2009 5:40am 2 Iron Level February 28, 42 UG/DL N 37-170 2012 5:05am LDL Cholesterol, July 18, 2008 108.4 N 66-159 Calculated 6:10am Lab Scanned Report March 27, LAB TEST - 2014 7:46am FORM REQUEST Lymphocytes # (Auto) May 31, 1.3 T/MM3 N 1-4.8 2014 4:41am Lymphocytes # May 29, 1.1 T/MM3 N 1-4.8 (Manual) 2014 4:43am Lymphocytes % May 29, 20.0 % L 23-45 (Manual) 2014 4:43am Lymphocytes (%) May 31, 25.9 % N 23-45 (Auto) 2014 4:41am MRSA Specimen Source December 02, Nasal - 2009 9:20am Magnesium Level May 31, 1.9 MG/DL DN 1.6-2.3 2014 4:41am Mean Corpuscular May 31, 31.1 UUG N 26-34 Hemoglobin 2014 4:41am Mean Corpuscular May 31, 31.9 GM/DL N 31-37 Hemoglobin Concent 2014 4:41am Mean Corpuscular May 31, 97.4 UM3 N 80-100 Volume 2014 4:41am Mean Platelet Volume May 31, 12.3 UM3 N 9.4-12.4 2014 4:41am Methicillin-Resist December 02, Negative - S.aureus DNA PCR 2009 9:20am Monocytes # (Auto) May 31, 0.4 T/MM3 N 0-0.8 2014 4:41am Monocytes # (Manual) May 29, 0.1 T/MM3 N 0-0.8 2014 4:43am Monocytes % (Manual) May 29, 1.0 % N 0-9.0 2014 4:43am Monocytes (%) (Auto) May 31, 8.3 % N 0-9.0 2014 4:41am Neutrophils # (Auto) May 31, 3.2 T/MM3 N 1.8-7.7 2014 4:41am Neutrophils # May 29, 4.1 T/MM3 N 1.8-7.7 (Manual) 2014 4:43am Neutrophils % May 29, 73.0 % H 33-66 (Manual) 2014 4:43am Neutrophils (%) May 31, 61.9 % N 33-66 (Auto) 2014 4:41am Percent Reticulocyte February 28, 2.8 % H 0.6-1.7 Count 2012 4:38am Platelet Count May 31, 152 T/MM3 N 974-006 5363 4:41am Potassium Level May 31, 4.2 MEQ/L N 3.6-5 2014 4:41am Prothromb Time May 28, 0.98 N 0.81-1.0 THERAPUTIC International Ratio 2014 5:15pm 9 RANGE=2.00-3.0 0 FOR ANTI-THROMBOSI S THERAPUTIC RANGE=2.50-3.5 0 FOR IMPLANTED VALVE RDW Standard May 31, 42.4 FL N 36.9-50. Deviation 2014 4:41am 2 Reactive Lymphocytes January 14, 0.1 T/MM3 H 0-0 # 2009 5:40am Reactive Lymphocytes January 14, 2.0 % H 0-0 % 2009 5:40am Red Blood Count May 31, 3.44 M/MM3 L 4.00-5.2 2014 4:41am 0 Red Cell Morphology May 29, Normal - Comment 2014 4:43am Reticulocyte Hgb February 28, 30.9 PG N 30.8-36. Content (CHr) 2012 4:38am 6 Sodium Level May 31, 143 MEQ/L N 586-540 8364 4:41am Thyroid Stimulating May 29, 1.09 MIU/L DN 0.47-4.6 Hormone (TSH) 2014 4:43am 8 Total Bilirubin May 29, 0.50 MG/DL N 0.20-1.3 2014 4:43am 0 Total Iron Binding February 28, 210 UG/DL L 261-497 Capacity 2012 5:05am Total Protein May 29, 6.1 G/DL L 6.3-8.2 2014 4:43am Transferrin February 28, 146.73 MG/DL L 018-163 1747 5:05am Triglycerides Level July 18, 2008 168 MG/DL H 35-135 6:10am Troponin I May 28, 0.027 ng/ml N 0-0.12 2014 5:15pm Turbidity May 31, < 20 0-20 2014 4:41am Urine Bacteria December 31, Trace H - Has specimen 2009 10:25am been collected/obta ined? Y Urine Bilirubin December 31, Negative - Has specimen 2009 10:25am been collected/obta ined? Y Urine Blood December 31, Negative - Has specimen 2009 10:25am been collected/obta ined? Y Urine Collection December 31, Voided - Has specimen Type 2009 10:25am been collected/obta ined? Y Urine Color December 31, Yellow - Has specimen 2010 10:25am been collected/obta ined? Y Urine Culture December 31, Cult not set - Has specimen Indicated 2009 10:25am up been collected/obta ined? Y Urine Glucose (UA) December 31, Negative - Has specimen 2009 10:25am been collected/obta ined? Y Urine Hyaline Casts December 31, 1-3 /LPF - Has specimen 2009 10:25am been collected/obta ined? Y Urine Ketones December 31, Negative - Has specimen 2009 10:25am been collected/obta ined? Y Urine Leukocyte December 31, 1+ H - Has specimen Esterase 2009 10:25am been collected/obta ined? Y Urine Mucus December 31, Present - Has specimen 2009 10:25am been collected/obta ined? Y Urine Nitrite December 31, Negative - Has specimen 2009 10:25am been collected/obta ined? Y Urine Protein December 31, Negative - Has specimen 2010 10:25am been collected/obta ined? Y Urine RBC December 31, 0-1 /HPF - Has specimen 2010 10:25am been collected/obta ined? Y Urine Specific December 31, 1.005 L - Has specimen [place] 2009 10:25am been collected/obta ined? Y Urine Squamous December 31, Few - Has specimen Epithelial Cells 2009 10:25am been collected/obta ined? Y Urine Turbidity December 31, Clear - Has specimen 2010 10:25am been collected/obta ined? Y Urine Urobilinogen December 31, Normal EU/DL - Has specimen 2009 10:25am been collected/obta ined? Y Urine WBC December 31, 3-5 /HPF - Has specimen 2010 10:25am been collected/obta ined? Y Urine pH December 31, 8.0 - Has specimen 2009 10:25am been collected/obta ined? Y VLDL Cholesterol July 18, 2008 33.6 MG/DL H 0-28 6:10am Vitamin B12 Level February 28, 299 PG/ML N 335-247 1777 5:05am White Blood Count May 31, 5.2 T/MM3 N 4.5-11.0 2014 4:41am Helicobacter pylori Gastric November 19, Rapid Urease Biopsy 2009 11:48am Name: CHON NAYAK Unit #: [id number] : [id number] Sex: F Loc / Svc: SRG DOS: 05/28/14 Signed Report #: [id number] DIAGNOSTIC IMAGING REPORT TYPE OF EXAM: US CAROTID DOPP COMPLETE Dictated By: SEBASTIÁN DUNHAM MD Indication: ITS.REASON: probable right-sided CVA TECHNIQUE: Grayscale, color and duplex Doppler imaging was performed of the carotid systems bilaterally. Velocities in cm/sec RIGHT: PSV ICA 103 PDV ICA 25 PSV CCA 123 PDV CCA 23.2 SVR 0.8 PSV ECA 137 ICA Diameter reduction <20% (0.8-1.0)% LEFT: PSV ICA 101 PDV ICA 18.9 PSV CCA 121 PDV CCA 26.6 SVR 0.8 PSV ECA 135 ICA Diameter reduction <20% (0.8-1.0)% The right vertebral artery is patent with cephalic flow. The left vertebral artery is patent with cephalic flow. Minimal plaque seen at the carotid bulbs. IMPRESSION: No hemodynamically significant carotid stenosis. . Procedures Procedure Status Date Provider(s) ROUTINE VENIPUNCTURE completed 03/26/14 ASSAY OF TROPONIN QUANT completed 03/26/14 RPR S/N/AX/GEN/TRNK 2.5CM/< completed 04/05/14 NGOZI LO MD X-RAY EXAM L-S SPINE 2/3 VWS completed 04/05/14 IMMUNIZATION ADMIN completed 04/05/14 TDAP VACCINE 7 YRS/> IM completed 04/05/14 EMERGENCY DEPT VISIT completed 04/05/14 [id number] ITEM OR SERVICE completed 04/05/14 [id number] ITEM OR SERVICE completed 04/05/14 Encounters Encounter Location Date/Time Discharged Inpatient 05/30/14 9:18am Departed Emergency Room 04/05/14 8:42pm Registered Clinic 03/26/14 4:30pm Recent Diagnosis Weakness of right upper extremity CVA (cerebrovascular accident)
[2016-10-23] MEDS ORDERED: IOHEXOL 300mg/ml 100ml INJECTION ONE (18:40)
[2016-10-23] MEDS ORDERED: NS 100 ML ONE (18:40)
[2016-10-23] MEDS ORDERED: SALINE FLUSH 10ml SYRINGE ONE (18:40)
[2016-10-23] MEDS ORDERED: CIPROFLOXACIN 250 MG TABLET PO ONE (19:07)
[2016-10-23] MEDS ORDERED: ERTAPENEM 1 G in NS 100 ML IV ONE (20:11)
[2016-10-23] MEDS ORDERED: MORPHINE SULFATE 2 MG SYRINGE IVP PRN (21:09)
[2016-10-23] MEDS ORDERED: NITROGLYCERIN 0.4 MG SUBLINGUAL TABLET SL PRN (21:09)
[2016-10-23] MEDS ORDERED: ONDANSETRON 4 MG/2 ML INJECTION IVP PRN (21:09)
--- NOTE | 2016-10-23 21:13 | History & Physical Report ---
<Magan Davidson - Last Filed: 10/23/16 21:48> History of Present Illness Date: 10/23/16 Chief complaint: Abdominal pain HPI: Rosalind is an 86 y/o w/ h/o HTN, HLD, Parkinson's and other medical issues who presents to ED at [facility] with c/o abdominal pain. Patient states she has had abdominal pain since Wednesday, some intermittent nausea, and today noted increasing pain, nausea, and decreased appetite along w/ some mild abdominal distention. Patient states she did have a BM this AM and did have breakfast, however since breakfast states she has not felt well and has had a generally poor appetite and intake. Patient denies f/c/s; denies emesis, diarrhea and denies change in bladder function. Denies SYKES, chest pain, SOA and dyspnea. In ED patient had a CT abdomen which showed diverticulitis in the sigmoid colon w/ a microperforation along w/ a lesion in the tail of the pancreas. Also showed some pancreatic and biliary ductal dilatation and prior evidence of cholecystectomy. Patient's UA c/s possible UTI. Dr. Trevizo saw the patient in the ER and requested that the Hospitalist service admit the patient and he will consult. Patient started on Invanz with 1 gram IV in the ER. Patient received Toradol x one in ED and Zofran and is feeling better at the time I visited w/ her. Patient to be admitted to the Hospitalist service for further evaluation and management. Review of Systems Review of systems: As noted in the HPI, otherwise a 10 point ROS otherwise negative PFS Patient Stated Medical History Cataracts Yes Cardiac Arrhythmia Yes: afib Hypertension Yes Gastroesophageal Reflux Yes Disease Osteoarthritis Yes Post Menopausal Yes Clinic Medical History (Last Reviewed 10/19/16 @ 15:00 by ZACK Coello) Primary osteoarthritis of left knee (Chronic Medical) Atrial fibrillation (Acute Medical) CHF (congestive heart failure) (Acute Medical) Depression (Acute Medical) Dysuria (Acute Medical) HTN (hypertension) (Acute Medical) Hyperlipidemia (Acute Medical) Nausea & vomiting (Acute Medical) Osteoporosis (Acute Medical) Parkinsons (Acute Medical) Tremors of nervous system (Acute Medical) Medical History Updates: Patient and patient's familiy report that episode of AFib was "many" years ago and occurred during an overnight stay in the hospital and spontaneously converted back to sinus rhythm and patient states she has not had any problems since that time. Also family reports that patient had a cardiac cath in recent past and purporedly was "fine". No h/o MIs Surgical History: Cholecystectomy: 1981. CTS, bunion removal. Cataract removal : 2006. Rt TKA 2000. Right TKA. Back surgery 2012 Family History: Family History (Last Reviewed 10/19/16 @ 15:00 by ZACK Coello) Mother Coronary artery disease Father Coronary artery disease Family History Updates: Patient's mother at age 29 d/t complications of Rheumatic Heart Disease. - Social History Smoking status: Never smoker Medications Home Medications Medication Instructions Recorded Confirmed Type Simvastatin 10 mg PO HS #0 12/20/09 10/23/16 History Nitroglycerin 0.4 mg SL Q5MIN3 PRN #0 12/30/09 10/23/16 History Acetaminophen 650 mg PO DAILY PRN #0 02/26/15 10/23/16 History Acetaminophen [Acetaminophen Extra 1,000 mg PO TID 10/23/16 10/23/16 History Strength] Amlodipine Besylate [Norvasc] 5 mg PO DAILY 10/23/16 10/23/16 History Carbidopa/Levodopa 25/100 mg 1 tab PO Q3H 10/23/16 10/23/16 History [Sinemet] Cholecalciferol (Vitamin D3) 1,000 unit PO DAILY 10/23/16 10/23/16 History [Vitamin D3] Cyanocobalamin (B-12) [Vit. B-12] 500 mcg PO DAILY 10/23/16 10/23/16 History Folic Acid [Folate] 1 mg PO DAILY 10/23/16 10/23/16 History Guaifenesin/Dm [Mucinex Dm] 1 tab PO Q12H PRN 10/23/16 10/23/16 History Labetalol [Normodyne] 50 mg PO BID 10/23/16 10/23/16 History Mag Hydrox/Aluminum Hyd/Simeth 30 ml PO DAILY PRN 10/23/16 10/23/16 History [Alum-Mag Hydroxide-Simeth Liq] Magnesium Oxide [Magnesium] 400 mg PO DAILY 10/23/16 10/23/16 History Potassium Chloride [Klor-Con M20] 20 meq PO DAILY 10/23/16 10/23/16 History Sertraline [Zoloft] 100 mg PO DAILY 10/23/16 10/23/16 History Trolamine Salicylate 10% Cream 1 applic TOP TID PRN 10/23/16 10/23/16 History [Aspercreme] Allergies Allergy/AdvReac Type Severity Reaction Status Date / Time tramadol Allergy Unknown Verified 10/23/16 16:35 codeine AdvReac Unknown NAUSEA Verified 10/23/16 16:35 hydrocodone bit AdvReac Unknown NAUSEA Uncoded 10/23/16 16:35 Exam Vital Signs: Temperature 98.4 F 10/23/16 16:35 Pulse Rate 68 10/23/16 20:58 Respiratory Rate 19 10/23/16 20:58 Blood Pressure 181/86 H 10/23/16 20:58 Pulse Oximetry 95 10/23/16 20:58 Telemetry Rhythm: Sinus Rhythm Height/Weight/BMI: Height 1.63 m Weight 70.8 kg - Constitutional Present: no acute distress, well nourished, well developed - Routine HEENT Exam Head: Present: normocephalic, atraumatic Eye: Present: EOMI, PERRL ENT: Present: mucous membranes dry - Routine Neck Exam Present: supple, full ROM. Absent: JVD - Routine Respiratory Exam Present: CTA bilaterally. Absent: accessory muscle use, respiratory distress - Routine Cardiovascular Exam Present: RRR - Routine Abdominal Exam Present: soft, normoactive bowel sounds, tenderness (primarily in upper quadrants, epigastrum and LLQ). Absent: rebound, guarding - Routine Extremities Exam Absent: cyanosis, clubbing, edema - Routine Skin Exam Present: intact, dry - Routine Neurological Exam Present: alert, oriented X3 - Routine Psychiatric Exam Present: normal affect, normal thought process Results - Labs CBC & Chem 7: 10/23/16 04:07 10/23/16 04:07 Microbiology Results: Microbiology 10/23/16 18:42 Urine, Voided (Cc/notcc) Urine Culture - Preliminary Culture Initiated - Results Pending 10/23/16 17:35 Peripheral/Iv Start Blood Culture - Preliminary Culture Initiated - Results Pending 10/23/16 17:28 Peripheral/Iv Start Blood Culture - Preliminary Culture Initiated - Results Pending Assessment and Plan DVT Prophylaxis: SCD's GI Prophylaxis: Protonix Resuscitation Status: Do Not Resuscitate Assessment and Plan: 1) Acute Diverticulitis w/ a microperforation POA 2) ACute UTI POA 3) Acute abdominal pain and nause r/t #1 4) HTN w/ elevated BP 5) Parkinson's on Sinemet 6) HLD 7) Remote h/o isolated episode of brief AFib - spontaneously converted to NSR 8) OA PLan: Admit to Hospitalist Service Consult Dr. Santhosh Nesbitt 1g IV q 24 hours Follow up on Urine and Blood cultures NPO IVFs that of NS at 100 cc/hour Telemetry Hold home meds d/t NPO - including holding Sinemet and Labetalol and other BP med (Norvasc) Start prn Hydralazine for SBP > 170 mm Hg Scheduled IV Metoprolol 2.5mg IV q 8 hours - hold for SBP < 110 mm Hg and HR < 60 bpm Fentanyl 25 mcg IV q 3 hours prn pain (patient and patient's family report that patient has had hallucinations and other issues w/ pain meds in the past, they mentioned morphine specifically). Discussed use of low-dose Fentanyl Zofran prn SCDs Protonix Patient desires to be a DNR I discussed the plan of care with the patient and patient's family and they verbalized understanding and agreement Hospital Course Summary Disclaimer: The visit summary below is not to be considered part of the above Progress Note. <Kenya Vazquez - Last Filed: 10/24/16 08:54> History of Present Illness Date: 10/24/16 [facility] Patient Stated Medical History Parkinson's Disease Yes Cataracts Yes Cardiac Arrhythmia Yes: afib-"converted on it's own", several yrs ago Hypertension Yes Other Cardiology Yes: "heart disease" Gastroesophageal Reflux Yes Disease Osteoarthritis Yes Depression Yes Post Menopausal Yes Clinic Medical History (Last Reviewed 10/19/16 @ 15:00 by ZACK Coello) Primary osteoarthritis of left knee (Chronic Medical) Atrial fibrillation (Acute Medical) CHF (congestive heart failure) (Acute Medical) Depression (Acute Medical) Dysuria (Acute Medical) HTN (hypertension) (Acute Medical) Hyperlipidemia (Acute Medical) Nausea & vomiting (Acute Medical) Osteoporosis (Acute Medical) Parkinsons (Acute Medical) Tremors of nervous system (Acute Medical) Family History: Family History (Last Reviewed 10/19/16 @ 15:00 by ZACK Coello) Mother Coronary artery disease Father Coronary artery disease Exam Vital Signs: Temperature 98 F 10/24/16 03:20 Pulse Rate 64 10/24/16 03:20 Respiratory Rate 15 10/24/16 03:20 Blood Pressure 165/77 H 10/24/16 03:20 Pulse Oximetry 95 10/24/16 03:20 Height/Weight/BMI: Weight 71.9 kg Results - Labs CBC & Chem 7: 10/24/16 03:52 10/24/16 03:51 Assessment and Plan Assessment and Plan: 10/24/2016-Dr. Vazquez I have reviewed and agree with the H&P above dictated by Dr. Davidson. Please see my additions below Chief complaint: Abdominal pain History of present illness: The patient has had increasing abdominal pain over the past several days. She has not had any vomiting or diarrhea. She was seen in the emergency room last night and CT abdomen showed mild acute sigmoid diverticulitis with evidence of perforation. The patient was treated with Toradol in the emergency room and currently she denies any abdominal pain. CT also showed multiple small and large intestinal air-fluid levels possibly representing mild enteritis. Also seen was a lesion in the pancreatic tail possibly a pseudocyst versus cystic neoplasm. She also had proximal pancreatic ductal dilatation and cholecystectomy with intra-and extra hepatic biliary ductal dilatation. Currently, the patient states she is just tired. She has not slept well for 2 or 3 nights but states it was not because of pain. She is not certain why she has not slept well, because she usually does. She denies any headache, chest pain or shortness of breath. She denies any palpitations. She denies any fevers , chills or sweats. UA appears to show a urinary tract infection, but she denies any dysuria or frequency. She states she has had bladder infections in the past that it been very symptomatic and she is having no symptoms of UTI at this time. She was surprised to hear that she had a bladder infection. Comprehensive review of systems is negative other than the above in history of present illness Past medical history remote history of A. fib, hypertension, GERD, osteoarthritis, cataracts, hypertension, hyperlipidemia, Parkinson's disease, history of heart catheterization which was "fine". In the past she saw Dr. Jolley but has not seen him for a couple of years. Past surgical history significant for cholecystectomy, CTS, bunion removal, cataract removal, TKA on the right, back surgery 2013 Family history significant for dad having coronary artery disease and mom dying of rheumatic heart disease at age 29. Social history: Patient is a lifelong nonsmoker her daughter Corrie is her DPOA. The patient lives at [facility] in the nursing facility. She has been nonambulatory for one year because of "knee problems". She has been up in a wheelchair for the past year but is trying to "learn to walk again". Medications and allergies were reviewed. Physical exam GEN-alert, oriented, she is a good historian, no acute distress HEENT-sclera anicteric, pupils equal round and reactive, oropharynx is moist NECK-supple CV-regular rate and rhythm CHEST-clear to auscultation bilaterally ABD-soft, hypoactive bowel sounds, tenderness without rebound or guarding in the lower abdomen, no distention -no To EXT-no edema, SCDs are on NEURO-alert, oriented, good historian. No focal deficits. Currently no tremulousness SKIN-warm and dry and without rashes Lab this morning reveals a white count of 8.5 down from 10.6. 84% neutrophils. Immature granulocytes are not elevated. Hemoglobin is 12 and platelets are 168. Lipase was normal at 13 Lactate was 1.0 and on recheck 0.9 Basic metabolic profile was normal. UA revealed 2+ protein, trace ketone, positive nitrate, trace leukocyte esterase , white cells 10-20, bacteria 3+. Culture is pending Blood cultures were obtained and are pending Impression Acute diverticulitis with microperforation present on admission Acute UTI present on admission-asymptomatic Abdominal pain with nausea-present on admission-improved Hypertension Parkinson's-on Sinemet 5 times daily hyperlipidemia History of A. fib brief episode 1 which spontaneously converted to sinus rhythm. Osteoarthritis Debility with inability to walk 1 year secondary to knee pain Lesion on the tail the pancreas seen on CT-may require further evaluation Dilated pancreatic and biliary ducts with history of cholecystectomy Plan The patient is currently receiving metoprolol IV. Will need to monitor blood pressure closely. We'll discuss with Dr. Trevizo and see if we can resume the patient's oral medications including Sinemet and blood pressure medications. Continue IV fluids for now. Minimized narcotics due to history of hallucinations We'll need an EKG if planning for surgery Await interpretation of CT abdomen by [facility] radiologist Hospital Course Summary Disclaimer: The visit summary below is not to be considered part of the above Progress Note.
[2016-10-23] MEDS ORDERED: FentaNYL 100 MCG/2 ML INJECTION IVP PRN (21:41)
[2016-10-23] MEDS ORDERED: HYDRALAZINE 20 MG/ML INJECTION IVP PRN (21:42)
[2016-10-23] MEDS: NS 1,000 ML IV SCH (21:44)
[2016-10-23] MEDS: METOPROLOL 5mg/5ml INJECTION IVP SCH (21:50)
[2016-10-24] MEDS: METOPROLOL 5mg/5ml INJECTION IVP SCH ×2 (01:58→10:02)
[2016-10-24] MEDS: NS 1,000 ML IV SCH ×2 (07:42→17:27)
--- NOTE | 2016-10-24 10:40 | Consultation ---
DATE OF SERVICE 10/23/2016 FINDINGS Mrs. Nayak is an 86-year-old female whom I was asked to see this evening as a result of her history and physical findings of abdominal pain in conjunction with an abnormal CT scan. Upon questioning Mrs. Nayak, she informs me that she has been experiencing a component of abdominal pain since Wednesday of this week, over the last three days. Patient states that the pain today became progressively worse and she therefore presented to our emergency room for further evaluation. Patient denied specific aggravating symptoms with the exception that the pain is worse when "someone pushes on her." Patient states the pain is not worse with ambulation or movement. Pain has been improved after being administered tramadol since her admission here to the emergency room. She has been nauseated but has not experienced any emesis. She has been having normal bowel movements per her report. The patient denies prior bout for diverticulitis in the past. She says she has undergone a colonoscopy in the remote past. PAST MEDICAL HISTORY CHRONIC ILLNESSES/SYSTEM DISORDERS 1. History for Parkinson's disease. 2. History for hypertension. PAST SURGICAL HISTORY Cholecystectomy. "Knee surgery." MEDICATIONS Simvastatin. Nitroglycerin. Tylenol. Norvasc. Carbidopa levodopa. Vitamin D. Vitamin B12. Folic acid. Mucinex. Normodyne. Potassium chloride. Magnesium oxide. Zoloft. Aspercreme. For complete doses and frequencies please refer to electronic medical record. ALLERGIES Tramadol. Codeine. Hydrocodone. SOCIAL HISTORY Patient denies alcohol or tobacco use. FAMILY HISTORY The patient states that both her parents as a result of heart disease. Her mother of heart disease at early age following a bout of rheumatic fever. Her father in his late 70s a result of a massive heart attack per her report. REVIEW OF SYSTEMS CONSTITUTIONAL: Patient denies fever or chills. HEENT: Negative. CARDIOVASCULAR: Positive for hypertension. Negative for recent element of angina. RESPIRATORY: Negative for cough, shortness of breath. GI: As per Findings section. : Negative for increased urinary frequency, dysuria. MUSCULOSKELETAL: Negative. HEMATOLOGIC/ONCOLOGIC: Negative. PSYCHIATRIC: Negative. PHYSICAL EXAMINATION GENERAL: Patient is an 86-year-old female who does not appear to be in acute distress. VITAL SIGNS: Temperature 98.4, pulse 67, respirations 19, blood pressure 172/81 , SAO2 97% on room air. HEENT: Normocephalic. Pupils are equally round and react to light and accommodation. NECK: Supple without lymphadenopathy. CHEST: Clear to auscultation bilaterally. HEART: Regular rate and rhythm. Normal S1 and S2 without gallops, murmurs or clicks. ABDOMEN: Palpation of the abdomen reveals it to be soft with only minimal tenderness being noted throughout the abdomen. She did not really have any point tenderness upon examination. I was unable to appreciate any evidence for involuntary guarding or voluntary guarding. EXTREMITIES: Without clubbing, cyanosis, or edema. NEURO: Cranial nerves II-XII grossly intact. Patient is without focal motor or sensory deficits. LABORATORY/RADIOGRAPHIC EVALUATION The patient had a CBC and her white count was 10.6. Hemoglobin is 12.4. Did have a slight left shift with 84% neutrophils. CMP was obtained and found to be essentially within normal limits. Lipase was normal at 13. UA was obtained and found be positive with 3+ bacteria and 10-[address] scan of her abdomen and pelvis was obtained. Findings were consistent with that of acute diverticulitis. There was also a small amount of intraperitoneal free air also noted. I did review the CT scan personally. ASSESSMENT 86-year-old female with sigmoid diverticulitis with associated microperforation. Patient without acute surgical abdomen at this time. PLAN Admission to hospital. Initiation of broad-spectrum antibiotics. Serial abdominal examinations. I informed the patient and her daughters that at this point in time from a physical examination standpoint she did not appear to have an acute surgical abdomen. She does not have any janes peritoneal signs despite having a small amount of free air noted on her CT scan. It was my recommendation that we go ahead and place her in the hospital and place her on broad-spectrum antibiotics. Will follow her closely with serial abdominal examinations. Will repeat lab work tomorrow. If she would develop increasing leukocytosis or increasing abdominal pain, surgical intervention may need to be undertaken. The above plan was discussed with the patient and daughters. They understood and agreed. DAMIAN
[2016-10-24] MEDS ORDERED: ACETAMINOPHEN 325 MG TABLET PO PRN (12:18)
[2016-10-24] MEDS: ACETAMINOPHEN 500 MG TABLET PO SCH ×2 (14:29→21:41)
[2016-10-24] MEDS: AMLODIPINE 5 MG TABLET PO SCH (14:30)
--- NOTE | 2016-10-24 14:34 | Progress Note ---
DATE OF SERVICE 10/24/2016 FINDINGS Mrs. Nayak states she is feeling better today. She is having less abdominal pain. EXAM VITAL SIGNS: Afebrile, normotensive. Current vitals include temperature 98.2, pulse 60, respirations 16, blood pressure 160/84, SAO2 95% on room air. HEENT: Normocephalic. Pupils are equally round and react to light and accommodation. CHEST: Clear to auscultation bilaterally. HEART: Regular rate and rhythm. Normal S1 and S2 without gallops, murmurs or clicks. ABDOMEN: Palpation of the abdomen today does indeed reveal less tenderness. The patient had some mild tenderness upon palpation within her midabdomen, left lower quadrant. There was, however, no evidence for involuntary guarding or rebound tenderness. LABORATORY/RADIOGRAPHIC EVALUATION The patient had a CBC today and her white count is 8.5. BMP obtained and found to be essentially within normal limits. ASSESSMENT 86-year-old female with acute sigmoid diverticulitis with associated microperforation noted upon CT scan. Patient clinically improving. PLAN Will go ahead and give sips/chips today. The patient may take her oral meds with water. Would still hold off on increasing diet at this point in time given the degree of microperforation noted upon CT scan. Tomorrow if she would continue to improve, will then begin to increase diet slowly. I am pleased with the patient's appearance this morning. DAMIAN
[2016-10-24] MEDS: ERTAPENEM 1 G in NS 100 ML IV SCH (20:00)
[2016-10-24] MEDS: SIMVASTATIN 10 MG TABLET PO SCH (21:41)
[2016-10-24] MEDS: LABETALOL 100 MG TABLET PO SCH (21:41)
[2016-10-25] MEDS: NS 1,000 ML IV SCH (04:55)
[2016-10-25] MEDS: ACETAMINOPHEN 500 MG TABLET PO SCH ×3 (09:25→20:53)
[2016-10-25] MEDS: LABETALOL 100 MG TABLET PO SCH ×2 (09:26→20:51)
[2016-10-25] MEDS: SERTRALINE 100 MG TABLET PO SCH (09:26)
[2016-10-25] MEDS: AMLODIPINE 5 MG TABLET PO SCH (09:26)
--- NOTE | 2016-10-25 10:23 | Progress Note ---
<SalvatoreMona Mariama - Last Filed: 10/25/16 10:19> Subjective: Rosalind is seen today in follow up. She is up in chair. Reports that she is feeling fairly well, but is hungry. "I haven't eaten since Wednesday". She denies any pain. No acute concerns. D/W RN- she is concerned that pt is a bit depressed. Seems to be lonely, improves with interaction with staff. Chair alarm is beeping- pt. reports this is bothering her. I have d/w RN- alarm will be replaced today. Objective Vital signs: Temperature 98.2 F 10/25/16 01:35 Pulse Rate 63 10/25/16 01:35 Respiratory Rate 16 10/25/16 01:35 Blood Pressure 149/77 H 10/25/16 01:35 Pulse Oximetry 92 10/25/16 01:35 Height/Weight/BMI: Weight 70.1 kg - Constitutional Present: no acute distress, well developed, cooperative - Routine HEENT Exam Head: Present: normocephalic, atraumatic Eye: Present: EOMI, PERRL - Routine Respiratory Exam Present: decreased breath sounds, CTA bilaterally. Absent: rhonchi, wheezes, crackles - Routine Cardiovascular Exam Present: RRR, S1, S2, murmur (Faint) - Routine Abdominal Exam Present: soft, non distended, non tender. Absent: normoactive bowel sounds ( Quiet BS x 4 quad. ) - Routine Extremities Exam Present: no edema, non tender, pulses intact - Routine Musculoskeletal Exam Musculoskeletal: Present: no clubbing or cyanosis, no tenderness, no erythema, moving extremities well - Routine Skin Exam Present: intact, dry, warm - Routine Neurological Exam Present: alert - Routine Psychiatric Exam Present: cooperative, depressed (RN reports concern for depression. ) Results - Labs CBC & Chem 7: 10/25/16 04:30 10/24/16 03:51 Microbiology Results: Microbiology 10/23/16 18:42 Urine, Voided (Cc/notcc) Urine Culture - Final Klebsiella pneumoniae 10/23/16 17:35 Peripheral/Iv Start Blood Culture - Preliminary No Growth After 1 Day 10/23/16 17:28 Peripheral/Iv Start Blood Culture - Preliminary No Growth After 1 Day Assessment and Plan (1) Acute diverticulitis Current visit: Yes Status: Acute (2) Colon perforation Current visit: Yes Status: Acute DVT Prophylaxis: SCD's Resuscitation Status: Do Not Resuscitate Assessment and Plan: Impression Acute diverticulitis with microperforation present on admission Acute UTI present on admission-asymptomatic Abdominal pain with nausea-present on admission-improved Hypertension Parkinson's-on Sinemet 5 times daily hyperlipidemia History of A. fib brief episode 1 which spontaneously converted to sinus rhythm. Osteoarthritis Debility with inability to walk 1 year secondary to knee pain Lesion on the tail the pancreas seen on CT-may require further evaluation Dilated pancreatic and biliary ducts with history of cholecystectomy Plan 10/25/16 Pt. to be allowed clear liquid sips and chips per surgery notes. She is c/o feeling hungry, but plan to slowly increase diet per surgery due to degree of microperforation. Remains on Ertapenem. Afebrile. Leukocytosis improving. Add PPI for GI prophylaxis until eating more. Will change IVF to D51/2 due to lower BG. She remains a bit dry, but avoid excessive IVF given HFpEF 70%, Grade II diastolic dysfunction. BP is still a bit high, but PO meds resumed last night. Continue to monitor for now. She appears depressed. Nursing is planning to increase interactions with staff if possible. Continue home Zoloft. Continue Sinemet for Parkinson's DO. Repeat labs in AM. Continue supportive care. - Time spent with patient 25 - 35 minutes Sepsis Assessment - Evaluation Sepsis screening result: No Definite Risk Hospital Course Summary Disclaimer: The visit summary below is not to be considered part of the above Progress Note. Hospital Course: 10/25/16 10:33 10/25/16 Pt. to be allowed clear liquid sips and chips per surgery notes. She is c/o feeling hungry, but plan to slowly increase diet per surgery due to degree of microperforation. Remains on Ertapenem. Afebrile. Leukocytosis improving. Add PPI for GI prophylaxis until eating more. Will change IVF to D51/2 due to lower BG. She remains a bit dry, but avoid excessive IVF given HFpEF 70%, Grade II diastolic dysfunction. BP is still a bit high, but PO meds resumed last night. Continue to monitor for now. She appears depressed. Nursing is planning to increase interactions with staff if possible. Continue home Zoloft. Continue Sinemet for Parkinson's DO. Repeat labs in AM. Continue supportive care. <VazquezKenya blank - Last Filed: 10/25/16 16:17> Objective Vital signs: Temperature 98.2 F 10/25/16 01:35 Pulse Rate 73 10/25/16 16:00 Respiratory Rate 16 10/25/16 01:35 Blood Pressure 159/84 H 10/25/16 09:26 Pulse Oximetry 92 10/25/16 01:35 Height/Weight/BMI: Weight 71.4 kg Results - Labs CBC & Chem 7: 10/25/16 04:30 10/24/16 03:51 Assessment and Plan (1) Acute diverticulitis Current visit: Yes Status: Acute (2) Colon perforation Current visit: Yes Status: Acute Assessment and Plan: 10/25/2016-I reviewed this chart, the patient history, and the [employer]'s/PA's documented findings as above. We discussed and formulated the assessment and plan as above with the additions below.-Dr. Vazquez The patient was seen this afternoon accompanied by her daughter, son and grandson. She states she was able to eat yogurt, cream of chicken soup, ice cream, and juice for lunch. She states she was very hungry prior to eating. She denies any abdominal pain or nausea after eating. She states she's feeling really well this afternoon. She did take a long nap after lunch. Her mood seems very good this afternoon and she is laughing with her family. She denies any difficulties breathing. She states her abdominal pain is gone. On exam she is alert and in no acute distress. Chest is clear to auscultation. Cardiovascular reveals a regular rate and rhythm. Abdomen is soft and nontender with positive bowel sounds. Extremities are free of edema. Overall, patient appears to be doing very well regarding her diverticulitis with microperforations. Continue on ertapenem. She is doing well with advancement of diet. We'll continue her usual home medications. We'll discontinue IV fluids now that she is eating and drinking well. Recheck labs tomorrow. Hospital Course Summary Disclaimer: The visit summary below is not to be considered part of the above Progress Note.
[2016-10-25] MEDS ORDERED: D5-1/2NS 1,000 ML IV SCH (10:30)
--- NOTE | 2016-10-25 10:46 | CT Scan Report ---
Indication: Abd distension PROCEDURE: CT abdomen pelvis w con: Encounter: Initial Comparison: November 17, 2013 Technique: Axial CT images were performed through the abdomen and pelvis after the administration of intravenous contrast. Coronal and sagittal two-dimensional reformats. Automated Exposure Control and Iterative Reconstruction dose reducing techniques were utilized. Contrast: Omnipaque 300 77 mL Findings: Mild atelectasis in the right lower lobe. Numerous small foci of free intraperitoneal air seen in the upper abdomen surrounding the liver and scott hepatis and along the anterior abdominal wall. The liver shows moderate intrahepatic bile duct dilatation similar to the prior study with postcholecystectomy change. The spleen is unremarkable. The pancreas is fatty-replaced with a stable benign appearing cystic lesion in the pancreatic tail. The adrenal glands are within normal limits. Bilateral renal cortical loss without focal renal lesion. No abdominal or pelvic adenopathy. Scattered arterial atherosclerotic plaque. Bladder is grossly normal. Uterus is within normal limits. Small amount of free pelvic fluid. Sigmoid diverticulosis with evidence of inflammatory change in the distal sigmoid colon. There is no focal rim-enhancing fluid collection or abscess present at this time. No bowel obstruction. Old healed bilateral inferior rami fractures. Large outpouching in the third portion of the duodenum best seen on coronal image #16 measuring 3.2 x 2.4 cm in size appears to represent a diverticulum. This does not seem to represent a site of focal perforation and there is no specific surrounding inflammatory change in this region. Bone windows show degenerative change and scoliosis in the spine. Impression: Perforated viscus with free intraperitoneal air. This appears to be due to a microperforated acute sigmoid diverticulitis. Emergent surgical consultation is recommended. There is a preliminary report by [facility]. .
[2016-10-25] MEDS: OMEPRAZOLE 20 MG CAPSULE PO SCH (10:47)
[2016-10-25] MEDS ORDERED: NS FLUSH BAG 500ml IV PRN (19:32)
[2016-10-25] MEDS: ERTAPENEM 1 G in NS 100 ML IV SCH (19:40)
[2016-10-25] MEDS: SALINE FLUSH 10ml SYRINGE IVF PRN (20:30)
[2016-10-25] MEDS: SIMVASTATIN 10 MG TABLET PO SCH (20:52)
[2016-10-26] MEDS: OMEPRAZOLE 20 MG CAPSULE PO SCH (06:15)
[2016-10-26] MEDS: CYANOCOBALAMIN (B-12) 500mcg TABLET PO SCH (09:21)
[2016-10-26] MEDS: SERTRALINE 100 MG TABLET PO SCH (09:21)
[2016-10-26] MEDS: LABETALOL 100 MG TABLET PO SCH ×2 (09:22→20:46)
[2016-10-26] MEDS: ACETAMINOPHEN 500 MG TABLET PO SCH ×3 (09:22→21:10)
[2016-10-26] MEDS: AMLODIPINE 5 MG TABLET PO SCH (09:22)
[2016-10-26] MEDS: FOLIC ACID 1 MG TABLET PO SCH (09:22)
--- NOTE | 2016-10-26 09:33 | Progress Note ---
Subjective: The patient states she's feeling well today. She slept very well last night. She tolerated a full liquid diet yesterday without any difficulties. She denies any abdominal discomfort. She denies any chest pain or shortness of breath. She has no complaints. Per her nurse, she did have one bowel movement yesterday and it appeared normal. Objective Vital signs: Temperature 96.2 F L 10/25/16 23:52 Pulse Rate 62 10/26/16 08:14 Respiratory Rate 18 10/25/16 23:52 Blood Pressure 157/78 H 10/25/16 23:52 Pulse Oximetry 95 10/25/16 23:52 Height/Weight/BMI: Weight 71.4 kg Comments: GEN-alert, oriented, no acute distress CV-regular rate and rhythm CHEST-clear to auscultation bilaterally ABD-soft, positive bowel sounds, mild tenderness without rebound or guarding -no To EXT-no edema NEURO-generalized weakness, no focal deficits SKIN-warm and dry Results - Labs CBC & Chem 7: 10/26/16 04:33 10/26/16 04:33 Assessment and Plan (1) Acute diverticulitis Current visit: Yes Status: Acute (2) Colon perforation Current visit: Yes Status: Acute Assessment and Plan: 10/26/2016 - Impression Acute diverticulitis with microperforation present on admission-currently on day 4 of ertapenem. Patient is doing very well. Tolerated advancement of diet. Acute UTI with Klebsiella-present on admission-sensitive to all antibiotics tested except ampicillin Abdominal pain with nausea-resolved Hypertension-pressure elevated this morning. Recheck blood pressure after she's received her morning meds Mild Anemia -stable Parkinson's-stable Paroxysmal A. 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 Trevizo, hopefully can change to oral antibiotics soon. Continue Sinemet. Sepsis Assessment - Evaluation Sepsis screening result: No Definite Risk Hospital Course Summary Disclaimer: The visit summary below is not to be considered part of the above Progress Note. Hospital Course: 10/25/16 10:33 10/25/16 Pt. to be allowed clear liquid sips and chips per surgery notes. She is c/o feeling hungry, but plan to slowly increase diet per surgery due to degree of microperforation. Remains on Ertapenem. Afebrile. Leukocytosis improving. Add PPI for GI prophylaxis until eating more. Will change IVF to D51/2 due to lower BG. She remains a bit dry, but avoid excessive IVF given HFpEF 70%, Grade II diastolic dysfunction. BP is still a bit high, but PO meds resumed last night. Continue to monitor for now. She appears depressed. Nursing is planning to increase interactions with staff if possible. Continue home Zoloft. Continue Sinemet for Parkinson's DO. Repeat labs in AM. Continue supportive care. 10/25/2016-I reviewed this chart, the patient history, and the DIRECTOR OF RETAIL MARKETING's/PA's documented findings as above. We discussed and formulated the assessment and plan as above with the additions below.-Dr. Vazquez The patient was seen this afternoon accompanied by her daughter, son and grandson. She states she was able to eat yogurt, cream of chicken soup, ice cream, and juice for lunch. She states she was very hungry prior to eating. She denies any abdominal pain or nausea after eating. She states she's feeling really well this afternoon. She did take a long nap after lunch. Her mood seems very good this afternoon and she is laughing with her family. She denies any difficulties breathing. She states her abdominal pain is gone. On exam she is alert and in no acute distress. Chest is clear to auscultation. Cardiovascular reveals a regular rate and rhythm. Abdomen is soft and nontender with positive bowel sounds. Extremities are free of edema. Overall, patient appears to be doing very well regarding her diverticulitis with microperforations. Continue on ertapenem. She is doing well with advancement of diet. We'll continue her usual home medications. We'll discontinue IV fluids now that she is eating and drinking well. Recheck labs tomorrow.
--- NOTE | 2016-10-26 10:42 | Progress Note ---
DATE OF SERVICE 10/26/2016 FINDINGS Mrs. Nayak denies any element of abdominal pain. Yesterday I did see the patient but the dictation system was down. Yesterday I did advance her diet. She has tolerated increase in her diet without difficulty. Denies increasing abdominal pain or nausea. EXAM VITAL SIGNS: Afebrile, normotensive. Current vitals include temperature 96.7, pulse 64, respirations 18, blood pressure 191/89, SAO2 98% on room air. CHEST: Clear to auscultation bilaterally. HEART: Regular rate and rhythm. Normal S1 and S2 without gallops, murmurs or clicks. ABDOMEN: Soft, completely nontender. ASSESSMENT 86-year-old female with history for diverticulitis with associated microperforation. Patient doing quite well. PLAN The patient had a CBC today and her white count remains to be normal at 6.3. Hemoglobin is 10.9. BMP was obtained and found to be within normal limits. It would be me recommendation that we go ahead and advance her diet as tolerated. I do believe the patient could be discharged to home later today with some additional antibiotics perhaps Bactrim DS one p.o. b.i.d. over the next four to five days. Will discuss with hospitalist. DAMIAN
[2016-10-26] MEDS: MetroNIDAZOLE 500 MG TABLET PO SCH ×3 (14:36→20:46)
[2016-10-26] MEDS: CIPROFLOXACIN 500 MG TABLET PO SCH (20:46)
[2016-10-26] MEDS: SIMVASTATIN 10 MG TABLET PO SCH (20:46)
[2016-10-26] MEDS: SENNA + DOCUSATE TABLET PO SCH (21:38)
[2016-10-27 00:39] VITALS: O2SAT 96
[2016-10-27] MEDS: OMEPRAZOLE 20 MG CAPSULE PO SCH (05:42)
[2016-10-27 07:53] VITALS: BP 164/84; PULSE 62; RESP 14; TEMP 98.4
[2016-10-27] MEDS: CYANOCOBALAMIN (B-12) 500mcg TABLET PO SCH (08:38)
[2016-10-27] MEDS: FOLIC ACID 1 MG TABLET PO SCH (08:38)
[2016-10-27] MEDS: SENNA + DOCUSATE TABLET PO SCH (08:38)
[2016-10-27] MEDS: LABETALOL 100 MG TABLET PO SCH (08:39)
[2016-10-27] MEDS: AMLODIPINE 5 MG TABLET PO SCH (08:39)
[2016-10-27] MEDS: MetroNIDAZOLE 500 MG TABLET PO SCH (08:39)
[2016-10-27] MEDS: CIPROFLOXACIN 500 MG TABLET PO SCH (08:40)
[2016-10-27] MEDS: SERTRALINE 100 MG TABLET PO SCH (08:40)
[2016-10-27] MEDS: ACETAMINOPHEN 500 MG TABLET PO SCH ×2 (08:44→14:41)
[2016-10-27] MEDS ORDERED: AMOX/CLAV 500 MG/125 MG TABLET PO SCH (10:30)
--- NOTE | 2016-10-27 11:22 | Progress Note ---
DATE 10/27/2016 FINDINGS Mrs. Nayak today had her regular clothes on and had just eaten breakfast. She stated that she was "ready to go home." VITALS: Afebrile. Normotensive. Vitals include temperature 98.4, pulse 62, blood pressure 164/84, SaO2 96% on room air. HEENT: Normocephalic. Pupils are equal, round and reactive to light and accommodation. CHEST: Clear to auscultation bilaterally. HEART: Regular rate and rhythm. Normal S1 and S2 without gallops, murmurs or clicks. ABDOMEN: Abdomen soft, completely nontender. LABORATORY/RADIOGRAPH EVALUATION I do see that a urine culture has grown out Klebsiella pneumoniae with greater than 100,000 colony-forming units. This is sensitive to Bactrim. ASSESSMENT 86-year-old female with history for microperforated sigmoid diverticulitis and Klebsiella UTI. Patient currently doing well. PLAN I do believe the patient could be discharged to home today from a surgical standpoint. Will plan on seeing the patient in the office in approximately 2-3 weeks or sooner if needed. Would recommend sending the patient home on Bactrim DS one p.o. b.i.d. for an additional 5-7 days. EVED
--- NOTE | 2016-10-27 11:29 | Discharge Instructions ---
Discharge Plan - Med Rec/Dispo Referrals/Follow Up: Tila Bazzi DO [Family Provider] - Prescriptions: New Amox/Clav [Augmentin] 500 mg PO Q8HR 3 Days #9 tab Continue Acetaminophen 650 mg PO DAILY PRN #0 PRN Reason: PAIN Acetaminophen [Acetaminophen Extra Strength] 1,000 mg PO TID Carbidopa/Levodopa 25/100 mg [Sinemet] 1 tab PO Q3H Guaifenesin/Dm [Mucinex Dm] 1 tab PO Q12H PRN PRN Reason: Nasal Congestion Magnesium Oxide [Magnesium] 400 mg PO DAILY Mag Hydrox/Aluminum Hyd/Simeth [Alum-Mag Hydroxide-Simeth Liq] 30 ml PO DAILY PRN PRN Reason: Reflux Labetalol [Normodyne] 50 mg PO BID Cyanocobalamin (B-12) [Vit. B-12] 500 mcg PO DAILY Amlodipine Besylate [Norvasc] 5 mg PO DAILY Trolamine Salicylate 10% Cream [Aspercreme] 1 applic TOP TID PRN PRN Reason: Pain Simvastatin 10 mg PO HS #0 Nitroglycerin 0.4 mg SL Q5MIN3 PRN #0 PRN Reason: chest pain Sertraline [Zoloft] 100 mg PO DAILY Cholecalciferol (Vitamin D3) [Vitamin D3] 1,000 unit PO DAILY Potassium Chloride [Klor-Con M20] 20 meq PO DAILY Folic Acid [Folate] 1 mg PO DAILY Discharge Instructions/Outpatient Orders: Final Provider Discharge Instructions Location: Determined By Patient - Disposition 04 To [facility] Home/Facility
--- NOTE | 2016-10-27 14:17 | Extended Care Facility Orders ---
Admission Orders Admit to:: [facility] Allergies/Adverse Reactions: Allergies tramadol Allergy (Unknown, Verified 10/23/16 16:35) PER DR BAZZI codeine Adverse Reaction (Unknown, Verified 10/23/16 16:35) NAUSEA hydrocodone bit Adverse Reaction (Unknown, Uncoded 10/23/16 16:35) NAUSEA Admitting Diagnosis: Diverticulitis w/ microperforation Admitting Physician: Kenya Vazquez MD Attending Physician: Kenya Vazquez MD Code Status: Do Not Resuscitate Anticiapted Length of Stay: greater than 30 days Rehab Potential: poor Rehab Prognosis: poor Diet: 10/25/16 Dinner Full Liquid Diet [DIET] 10/25/16 Lunch Full Liquid Diet [DIET] 10/26/16 Lunch Regular Diet [DIET] Diet Modifications: May use Facility Protocol or Standing Orders: Yes May have flu vaccine: Yes Correction Certification: I certify that SNF services are required to be given on an Inpatient basis because of the patients need for fci care on a continuing basis for the condition(s) for which he/she received inpatient hospital services prior to his/her transfer to the SNF. SNF inpatient care is necessary for the following reasons - Additional Information Referrals: Tila Bazzi DO [Family Provider] -
--- NOTE | 2016-10-27 17:07 | Discharge Summary ---
Discharge Information Date of admission: 10/23/16 20:44 Anticipated date of discharge: 10/27/16 Attending Physician: Kenya Vazquez MD Primary care physician: Tila Bazzi DO - Laboratory Labs: 10/26/16 04:33 10/27/16 11:23 History of Present Illness HPI: Rosalind is an 86 y/o w/ h/o HTN, HLD, Parkinson's and other medical issues who presents to ED at [facility] with c/o abdominal pain. Patient states she has had abdominal pain since Wednesday, some intermittent nausea, and today noted increasing pain, nausea, and decreased appetite along w/ some mild abdominal distention. Patient states she did have a BM this AM and did have breakfast, however since breakfast states she has not felt well and has had a generally poor appetite and intake. Patient denies f/c/s; denies emesis, diarrhea and denies change in bladder function. Denies SYKES, chest pain, SOA and dyspnea. In ED patient had a CT abdomen which showed diverticulitis in the sigmoid colon w/ a microperforation along w/ a lesion in the tail of the pancreas. Also showed some pancreatic and biliary ductal dilatation and prior evidence of cholecystectomy. Patient's UA c/s possible UTI. Dr. Trevizo saw the patient in the ER and requested that the Hospitalist service admit the patient and he will consult. Patient started on Invanz with 1 gram IV in the ER. Patient received Toradol x one in ED and Zofran and is feeling better at the time I visited w/ her. Patient to be admitted to the Hospitalist service for further evaluation and management. Objective Vital signs: Temperature 98.4 F 10/27/16 07:52 Pulse Rate 62 10/27/16 07:52 Respiratory Rate 14 10/27/16 07:52 Blood Pressure 164/84 H 10/27/16 07:52 Pulse Oximetry 96 10/27/16 07:52 Height/Weight/BMI: Weight 158 lb 8.198 oz - Additional findings Additional findings: The pt was examined at 9:30 am on the day of discharge In general, the patient is alert and oriented 3, cooperative with exam, and in no respiratory distress. HEENT: Head is atraumatic, normocephalic, no conjunctival petechiae, no oral thrush, mucous membranes are moist and pink. Lungs: Clear to auscultation without wheezes, crackles or rhonchi CV: Regular rate and rhythm without murmur Abdomen: Soft, nontender, bowel sounds are present, there is no guarding no rebound. Extremities: No clubbing, no cyanosis, no edema. Skin: Warm and dry no sign of rash Neuro: Patient is alert Hospital Course This is a general summary of the patient's hospital course. For more details refer to the complete medical record. Hospital course: The patient was admitted on 09/22/2012. Dr. Trevizo was consulted for evaluation and treatment of her sigmoid diverticulitis with associated microperforation. It was felt the patient did not have an acute surgical abdomen at the time of admission. She was started initially on IV ertapenem and underwent serial abdominal examinations. She remained nothing by mouth until October 25 where her diet was slowly advanced. As she continued to improve her IV fluids were discontinued her diet was advanced. Her ertapenem was discontinued on October 26 and she initially was started on Cipro and metronidazole. On October 27, she was doing well sitting up in the chair eating well she had had regular bowel movements. She was discharged on oral amoxicillin clavulanate 500 mg by mouth every 8 hours for 3 more days after discussion with Dr. Trevizo. Her potassium was slowly decreasing, her potassium had been on hold during her hospitalization she was received 40 mEq of potassium on the day of discharge, and then was resumed on her daily potassium 20 mEq by mouth daily. Interestingly,the patient was not on Lasix prior to or during her hospitalizaton. This was confirmed by the nurse at [facility] and discussed with Dr. Bazzi as well. It should be noted that the patient's CT of the abdomen and pelvis she was noted to have a lobulated hypoattenuating lesion within the region of the pancreatic tail measuring 2.1 x 1.6 cm. The patient may need further evaluation of this as an outpatient with perhaps repeat scanning had a later date. Discharge Plan - Med Rec/Dispo Referrals/Follow Up: Tila Bazzi DO [Family Provider] - Prescriptions: New Amox/Clav [Augmentin] 500 mg PO Q8HR 3 Days #9 tab Continue Acetaminophen 650 mg PO DAILY PRN #0 PRN Reason: PAIN Acetaminophen [Acetaminophen Extra Strength] 1,000 mg PO TID Carbidopa/Levodopa 25/100 mg [Sinemet] 1 tab PO Q3H Guaifenesin/Dm [Mucinex Dm] 1 tab PO Q12H PRN PRN Reason: Nasal Congestion Magnesium Oxide [Magnesium] 400 mg PO DAILY Mag Hydrox/Aluminum Hyd/Simeth [Alum-Mag Hydroxide-Simeth Liq] 30 ml PO DAILY PRN PRN Reason: Reflux Labetalol [Normodyne] 50 mg PO BID Cyanocobalamin (B-12) [Vit. B-12] 500 mcg PO DAILY Amlodipine Besylate [Norvasc] 5 mg PO DAILY Trolamine Salicylate 10% Cream [Aspercreme] 1 applic TOP TID PRN PRN Reason: Pain Simvastatin 10 mg PO HS #0 Nitroglycerin 0.4 mg SL Q5MIN3 PRN #0 PRN Reason: chest pain Sertraline [Zoloft] 100 mg PO DAILY Cholecalciferol (Vitamin D3) [Vitamin D3] 1,000 unit PO DAILY Potassium Chloride [Klor-Con M20] 20 meq PO DAILY Folic Acid [Folate] 1 mg PO DAILY Discharge Instructions/Outpatient Orders: Final Provider Discharge Instructions Location: Determined By Patient - Disposition 04 To [facility] Home/Facility
== END 2016-10-27 16:14 | DRG 392 ==
LOC: ED 16:24 → SRG 20:44
PROVIDERS: ADMIT Internal Medicine; ATTEND Internal Medicine